=== PATIENT | female | born 1950 | race Caucasian/White ===

== ENCOUNTER 2020-08-24 06:26 | Emergency (ER) | payer OTHER, SELFPAY ==
[2020-08-24 06:27] VITALS: BP 196/86; PULSE 89; RESP 16; TEMP 36.8; O2SAT 99; BMI 36.7
--- NOTE | 2020-08-24 06:35 | EKG12_ITS ---
Test Reason : Blood Pressure : / mmHG Vent. Rate : 057 BPM Atrial Rate : 057 BPM P-R Int : 220 ms QRS Dur : 084 ms QT Int : 424 ms P-R-T Axes : 058 -18 -05 degrees QTc Int : 412 ms Sinus bradycardia with 1st degree A-V block Nonspecific ST abnormality Abnormal ECG Confirmed by EDENILSON NGUYEN, HERBERT ([id number]), supervising editor news reel PUNEET SCHWAB ([id number]) on 08/26/2020 8:10:33 AM Referred By: MERCEDES Confirmed By:TREY PYLE MD
--- NOTE | 2020-08-24 06:36 | ED.VIS.GEN ---
History of Present Illness Chief Complaint: Abd Pain Informant: Patient Narrative: Patient stated she has had diffuse abdominal pain for last 6 weeks. It is continuous but waxes and wanes deep aching sometimes sharp. She has had a partial work-up for this. She saw her family doctor who did some urine testing and told her she had some hematuria. She was placed on antibiotic for that and it seemed to cleared up but she followed up and had a repeat urine test that showed some microscopic hematuria. She saw urologist and was diagnosed with renal stones with a IN her kidneys and not causing any symptoms per urology. Patient also followed up with a general surgeon Dr. Gayle her abdomen was done which showed stones but they do not feel that the cause of her generalized pain. They are planning on doing a endoscopy next. Patient stated she has no nausea or vomiting. She is having bowel movements but she feels a little more constipated. History of a hysterectomy and appendectomy in the remote past. Denies any chronic medical problems. She denies a history of hypertension. She does not take any chronic medications. No urinary symptoms currently. Past Medical History - Allergies and Home Meds Allergies/Adverse Reactions: Allergies No Known Allergies Allergy (Verified 08/24/20 06:37) Primary Care Physician: Mekhi Betancourt,Out of [Primary Care Provider] - Prior records reviewed: Yes Past Medical History: None Surgical History: appendectomy, hysterectomy Lives: With Family Smoking Status: Never smoker Alcohol: None Drugs: None Review of Systems General: Denies: Chills, Fever, Sweats Eyes: Denies: Visual changes - bilaterally, Diplopia ENT: Denies: Rhinorrhea, Sore throat Cardiovascular: Denies: Chest pain, Palpitations Respiratory: Denies: Dyspnea, Cough, Dyspnea on exertion Gastrointestinal: Reports: Abdominal pain. Denies: Nausea, Vomiting, Diarrhea, Melena, Hematochezia Genitourinary: Denies: Dysuria, Hematuria, Frequency Musculoskeletal: Denies: Back pain, Extremity Pain Skin: Denies: Rash, Wounds Neurological: Denies: Headache, Weakness, Numbness Physical Exam Vital Signs/Narrative: Vital Signs Temp Pulse Resp BP Pulse Ox 08/24/20 06:27 98.2 F 89 16 196/86 H 99 General: Well nourished, Well developed, No Acute Distress Head: Normocephalic, Atraumatic Eyes: Perrl, EOMI ENT: Moist mucous membranes, No rhinorrhea Neck: Supple, Nontender Cardiovascular: Regular rate, Regular rhythm, No murmurs Respiratory: No distress, CTA bilaterally, Chest nontender, Chest tenderness Abdomen: Soft, Nondistended, Normal bowel sounds, Tender - Mild diffuse tenderness throughout. Negative for: Guarding, Rebound tenderness, Hyperactive bowel sounds, Hepatomegaly Back: Nontender, Normal Inspection Extremities: Nontender, No edema Skin: Normal color, No rash Neurological: Alert, Oriented x3, Cranial nerves II-XII grossly intact, Normal Strength, Normal Sensation Psychological: Normal affect, Normal Mood Diagnostic/Tx/Re-eval - Medical Decision Making Patient declined pain or nausea medicines. Lab work and CT abdomen pelvis obtained. Will be signed out to the morning oncoming physician Dr Rivera for follow up ED Disposition - Plan for ED Patient: Diagnosis: Abdominal pain Referrals: [facility] Doctor,Out of [Primary Care Provider] -
--- NOTE | 2020-08-24 07:01 | CT_ITS ---
STUDY: CT ABDOMEN AND PELVIS WITH CONTRAST REASON FOR EXAM: Female, 69 years old. Upper abd pain and hematuria -- IV PO Contrast RADIATION DOSAGE (If Supplied By Facility): CTDIvol = ( 16.12 ) mGy, DLP = ( 1062.53 ) mGycm TECHNIQUE: Transaxial images were obtained from the dome of the diaphragm to the symphysis pubis with oral contrast. Oral and amp; IV Gastrografin and amp; 100mL Isovue-300 was administered. Sagittal and coronal images were reconstructed. Individualized dose optimization techniques were used for this CT. COMPARISON: None. FINDINGS: The visualized lung bases are unremarkable. The visualized portions of the heart are within normal limits. Normal liver. There are multiple gallstones. Normal spleen. Normal pancreas. Normal bilateral adrenal glands. There is a 1.1 cm calculus in the mid lower pole calyces of the right kidney. Punctate calculus in the upper pole calyx of the right kidney. Mild degree of right hydronephrosis and right hydroureter down to the ureterovesical junction. No obstructive calculus is seen at this time. This may be secondary to a recently passed right ureteral calculus.. Left parapelvic renal cysts. Normal visualized stomach. Normal small intestine. There are multiple colonic diverticula consistent with diverticulosis. Moderate amount of fecal material is seen in the colon. The patient is status post appendectomy. There is scattered atherosclerotic calcification of the abdominal aorta, without a demonstrated aneurysm. Normal inferior vena cava. Normal retroperitoneum. Normal urinary bladder. There is absence of the uterus consistent with a prior hysterectomy. Normal abdominal wall. There are degenerative changes of the visualized lumbar spine. Minimal anterior listhesis of L3 on L4 most likely secondary to facet joint osteoarthritis. CT/Abdomen/Pelvis WITH Contrast IMPRESSION: 1.1; this in the mid lower pole calyxes of the right kidney. Mild degree of right hydronephrosis and right hydroureter without an obstructive calculus at this time. Left parapelvic renal cysts. Moderate amount of fecal material is seen in the colon. Electronically Signed: Nadir Garza MD at 9:18 EDT , Service support ,
[2020-08-24 07:02] LABS: Absolute Lymphocyte Count 0.98 X10^3/uL (0.83-4.51); Absolute Neutrophil Count 2.5 X10^3/uL (2.0-7.7); Basophil# 0.05 X10^3/uL; Basophil% 1.2 % (0-1); Eosinophil# 0.29 X10^3/uL; Eosinophils% 7.1 % (0-5); Hematocrit 40.1 % (37-47); Hemoglobin 13.3 g/dL (12.0-15.0); Lymphocyte # 0.98 X10^3/ul (0.83-4.51); Mean Corp Hgb Conc 33.2 g/dL (32-36); Mean Corpuscular Hgb 31.3 pg (27.0-32.0); Mean Corpuscular Volume 94.4 fL (81-99); Mean Platelet Vol. 10.3 fl (6.2-12.0); Monocyte# 0.29 X10^3/uL; Monocyte% 7.1 % (0-10); NRBC Flagged by Analyzer 0 % (0-5); Neutrophil # 2.47 X10^3/uL (2.7-7.7); Neutrophil % 60.4 % (47-70); Platelet Count 239 K/mm3 (150-450); RBC Distribution Width CV 12.9 % (11.6-14.6); Red Blood Count 4.25 M/mm3 (4.2-5.4); White Blood Count 4.1 K/mm3 (4.4-11.0)
[2020-08-24 07:25] LABS: ALB/GLOB Ratio 1.1 RATIO (0.9-2.4); AST(SGOT) 15 U/L (15-37); Alanine Aminotransfer ALT/SGPT 19 U/L (13-56); Albumin, Serum 3.9 g/dL (3.2-5.0); Alkaline Phosphatase 79 U/L (45-117); Anion Gap 3 (5-15); BUN 23 mg/dL (7-18); BUN/Creat Ratio 25.4 RATIO (10-20); Calcium,Total 8.8 mg/dL (8.5-10.1); Chloride 108 mmol/L (98-107); Creatinine, Serum 0.91 mg/dL (0.55-1.02); EST Glomerular Filtration Rate 65 mL/min (>60); Est Glom Filt Rate - Afr Amer 79 mL/min (>60); Estimated Creatinine Clearance 44.85 ml/min; Globulin 3.4 g/dL (2.2-4.2); Glucose 100 mg/dL (74-106); Lipase 29 U/L (73-393); Protein, Total 7.3 g/dL (6.4-8.2); Sodium Level 141 mmol/L (136-145)
[2020-08-24 07:58] VITALS: BP 184/63; PULSE 72; RESP 16; TEMP 36.4; O2SAT 99
[2020-08-24] MEDS: 0.9% Normal Saline 1,000 ML 1000 ML IV (08:08)
[2020-08-24 08:13] LABS: Bacteria 0 SEEN /hpf (None Seen); Mucous, Urine 0 SEEN /hpf (<or=2+); White Blood Cells 0 SEEN /hpf (0-5)
[2020-08-24 08:20] LABS: Color, Urine Straw (Yellow); Glucose, Dipstick Normal (Normal); Ketone-Dipstick Negative (Negative); Leukocyte Esterase-Dipstick Negative /ul (Negative); Nitrite-Dipstick Negative (Negative); Occult Blood-Urine 10 /ul (Negative); Protein-Dipstick Negative (Negative); Urine Bilirubin Dipstick Negative (Negative); Urine Clarity Clear (Clear); Urine Urobilinogen Normal (Normal)
[2020-08-24 08:23] VITALS: BP 149/74; PULSE 84; RESP 16; TEMP 36.4; O2SAT 97
[2020-08-24 08:25] LABS: Red Blood Cells-Urine 0-5 SEEN /hpf (0-5); Squamous Epithelial Cells - UA 0-5 SEEN /hpf (5-10)
--- NOTE | 2020-08-24 09:44 | ED.DEP ---
ED Disposition - Plan for ED Patient: Disposition: Home or Assisted Living Diagnosis: Abdominal pain Instructions: ED Constipation (Adult), Understanding Kidney Stones Prescriptions: Magnesium Citrate [Citrate Of Magnesia] 150 ml PO Q4H PRN PRN #300 ml PRN Reason: Constipation Transmission Status: Pending to [facility] Referrals: Kedar Gayle MD [STAFF PHYSICIAN] - Keep [facility] appointment
[2020-08-24 09:59] VITALS: BP 160/79; PULSE 68; RESP 18; O2SAT 95
== END 2020-08-24 10:00 | disposition home or self-care (01) ==
PROVIDERS: Emergency Medicine; Emergency Provider Emergency Medicine; PCP Nurse Practitioner Family
DX: N13.30 Unspecified hydronephrosis (principal); N13.4 Hydroureter; K59.00 Constipation, unspecified; N28.1 Cyst of kidney, acquired; I44.0 Atrioventricular block, first degree; Z87.442 Personal history of urinary calculi
CPT/HCPCS: 74177; 80053; 81001; 83690; 84484; 85025; 93005; 96360; 99283; J7030; Q9967; A4216

== ENCOUNTER 2020-10-11 18:27 | Emergency (ER) | payer OTHER, SELFPAY ==
[2020-10-11 18:28] VITALS: BP 173/100; PULSE 75; RESP 16; TEMP 36.6; O2SAT 96; BMI 36.6
[2020-10-11 19:50] LABS: Absolute Lymphocyte Count 1.19 X10^3/uL (0.83-4.51); Absolute Neutrophil Count 3.4 X10^3/uL (2.0-7.7); Basophil# 0.03 X10^3/uL; Basophil% 0.6 % (0-1); Eosinophils% 5.6 % (0-5); Hematocrit 38.3 % (37-47); Hemoglobin 12.7 g/dL (12.0-15.0); Lymphocyte # 1.19 X10^3/ul (0.83-4.51); Lymphocyte % 22.4 % (19-41); Mean Corp Hgb Conc 33.2 g/dL (32-36); Mean Corpuscular Hgb 31.1 pg (27.0-32.0); Mean Corpuscular Volume 93.9 fL (81-99); Mean Platelet Vol. 10.4 fl (6.2-12.0); Monocyte# 0.38 X10^3/uL; Monocyte% 7.2 % (0-10); NRBC Flagged by Analyzer 0 % (0-5); Platelet Count 250 K/mm3 (150-450); RBC Distribution Width CV 13.3 % (11.6-14.6); RBC Distribution Width SD 45.6 fl (35.1-43.9); Red Blood Count 4.08 M/mm3 (4.2-5.4); White Blood Count 5.3 K/mm3 (4.4-11.0)
--- NOTE | 2020-10-11 20:02 | EDS_ITS ---
HPI History of Present Illness Chief Complaint: Abd Pain Informant: patient Narrative Narrative: Patient is a 70-year-old female who presents to the emergency department for abdominal pain. She has been seen before in the past for this. She states that she has been having ongoing issues over the past couple of months for this. She had a perforated ulcer back in August. She was told that she had many gallstones. They wanted the stomach ulcer to heal before they did surgery on the gallbladder. She also had kidney stones. She has been having gross hematuria but this has improved. She called her surgeon today and he referred to the emergency department because they were unable to operate on her until next week. She denies any fevers or chills. No nausea or vomiting. No change in bowel movements. No urinary symptoms now. She currently rates the p ain as a 6 out of 10. Does fluctuate in severity and gets very severe at times. She has been taking Protonix at home. This has not been giving her much relief. She also has noticed a couple spots breakout on her arms. The right forearm has been draining a clear fluid. She is never had this before. This has been present over the past 2 days. [facility] Medical History (Updated 10/11/20 @ 21:[address] Donavon Pretty DO) Gallbladder attack Kidney stones Stomach ulcer Home Medications magnesium citrate 150 ml PO Q4H PRN PRN #300 ml 08/24/20 [Rx Last Taken Unknown] cephalexin 500 mg PO Q12H #14 cap 10/11/20 [Rx Last Taken Unknown] hydrocodone-acetaminophen 1 tab PO Q6H PRN PRN 4 Days #15 tablet 10/11/20 [Rx Last Taken Unknown] polyethylene glycol 3350 [Miralax] 17 g PO DAILY 7 Days #119 g 10/11/20 [Rx Last Taken Unknown] Allergy/AdvReac Type Severity Reaction Status Date / Time No Known Allergies Allergy Verified 10/11/20 18:30 Social History Smoking Status: Never smoker ROS ROS ED Constitutional Constitutional ED: Denies chills or fever(s) Eyes Eyes: Denies change in vision ENT ENT ED: Denies epistaxis or rhinorrhea Cardiovascular Cardiovascular: Denies chest pain or palpitations Respiratory/Chest Respiratory/Chest: Denies cough, dyspnea or dyspnea on exertion Gastrointestinal Gastrointestinal: Reports abdominal pain; Denies diarrhea, nausea or vomiting Genitourinary Genitourinary ED: Denies dysuria, hematuria or urinary frequency Musculoskeletal Musculoskeletal: Denies back pain or neck pain Integumentary Reports rash Neurologic Neurologic: Denies dizziness, headache(s) or weakness EXAM Physical Exam Const Vital Signs: 10/11/20 18:28 10/11/20 20:33 Temperature 97.8 F Temperature Source Temporal Pulse Rate 75 64 Respiratory Rate 16 16 Blood Pressure 173/100 H 170/86 H Blood Pressure Mean 124 114 Pulse Ox 96 97 Oxygen Delivery Method Room Air Room Air Positive well nourished and well developed General Appearance ED: well developed and NAD HEENT Reports normocephalic, head/scalp atraumatic and moist mucous membranes Eyes PERRL and EOMs intact bilaterally Neck supple Chest Wall inspection of chest normal Resp normal respiratory effort and clear to auscultation bilaterally Auscultation: Negative for rales, rhonchi or wheezes Cardio regular rate, regular rhythm and no murmurs GI normal to inspection, nondistended, normoactive bowel sounds GI Narrative: Mild diffuse tenderness. More severe tenderness in the right upper quadrant. Palpation: Negative for guarding or rebound tenderness present Back/Spine no CVA tenderness Extremity normal to inspection General Extremety ED: Negative for edema or tenderness General Extremity: Negative for edema Neuro oriented x3, CN's II-XII intact bilaterally and no sensory deficits noted Sensorium / Orientation: alert Motor Exam: strength 5/5 throughout Psych mental status grossly normal Skin Skin Narrative: Superficial ulcerations of the upper extremities. There are 5 lesions in total. One has some serosanguineous draining on the right forearm. No surrounding cellulitis or abscess. MDM MDM MDM Narrative Medical decision making narrative: Patient presents to the ED for abdominal pain. She is supposed to have a cholecystectomy performed outpatient but her pain has been getting worse. Will check basic lab work and repeat CT scan of the abdomen/pelvis. Patient's lab work-up did not reveal a high white blood cell count. No significant electrolyte disturbance. Mild elevation of AST but no other abnormality on liver enzymes. Lipase is within normal limits. Urine shows signs of infection and will treat this with Keflex. Patient's pain is doing much better. CT scan was similar to previous. There is some hydronephrosis without evidence of obstruction. There are not many gallstones in the gallbladder. Since she has not been treated with pain medication we will try outpatient treatment with [facility]. She is to follow-up with her general surgeon. She is put on MiraLAX for potential constipation. Patient advised to put triple antibiotic ointment on the open wounds and to not pick at them. No evidence of infection at this time. Return precautions are reviewed. She understands and is agreeable to plan. Discharged home in stable condition. All questions answered. Lab Data Labs: Laboratory Results - last 24 hr 10/11/20 10/11/20 10/11/20 19:45 19:45 20:13 WBC 5.3 RBC 4.08 L Hgb 12.7 Hct 38.3 MCV 93.9 MCH 31.1 MCHC 33.2 RDW Std Deviation 45.6 H RDW Coeff of Komal 13.3 Plt Count 250 MPV 10.4 Immature Gran % (Auto) 0.200 Neut % (Auto) 64.0 Lymph % (Auto) 22.4 Fountain % (Auto) 7.2 Eos % (Auto) 5.6 H Baso % (Auto) 0.6 Absolute Neuts (auto) 3.4 Absolute Lymphs (auto) 1.19 Nucleated RBC % 0 Sodium 143 Potassium 4.6 Chloride 112 H Carbon Dioxide 25.0 Anion Gap 6 BUN 14 Creatinine 0.82 Estim Creat Clear Calc 49.05 Est GFR (MDRD) Af Amer 88 Est GFR (MDRD) Non-Af 72 BUN/Creatinine Ratio 17.0 Glucose 122 H Calcium 8.8 Total Bilirubin 0.90 AST 46 H ALT 22 Alkaline Phosphatase 83 Total Protein 7.1 Albumin 3.6 Globulin 3.5 Albumin/Globulin Ratio 1.0 Lipase < 10 L Urine Color Yellow Urine Clarity Sl. Cloudy Urine pH 6.0 Ur Specific [place] 1.020 Urine Protein 15 H Urine Glucose (UA) Normal Urine Ketones Negative Urine Occult Blood 25 H Urine Nitrite Positive H Urine Bilirubin Negative Urine Urobilinogen Normal Ur Leukocyte Esterase 500 H Urine RBC 0-5 SEEN Urine WBC >100 SEEN Ur Squamous Epith Cells 0-5 SEEN Urine Bacteria 2+ Urine Mucus 0 SEEN Radiography Diagnostic Testing: Radiology Impression Abdomen/Pelvis CT 10/11/20 20:18 IMPRESSION: Large stone burden within the gallbladder. Nonobstructing 1.3 cm right renal pelvic stone. Similar right hydronephrosis/proximal hydroureter. Diverticulosis. Electronically Signed: Wilber Tipton MD at 21:16 EDT Tel , Service support , Discharge Plan Triage Chief Complaint: Abd Pain ED Provider: Donavon Pretty Dx/Rx/DC Orders Clinical Impression: Abdominal pain, Cholelithiasis, UTI (urinary tract infection), uncomplicated Instructions: ED Gallstones with Biliary Colic, ED Bladder Infection, Female (Adult) Prescriptions: New hydrocodone-acetaminophen 5-325 mg tablet 1 tab PO Q6H PRN PRN (Reason: Pain) 4 Days Qty: 15 RF: 0 cephalexin 500 mg capsule 500 mg PO Q12H Qty: 14 RF: 0 polyethylene glycol 3350 [Miralax] 17 gram/dose powder 17 g PO DAILY 7 Days Qty: 119 RF: 0 No Action magnesium citrate 300 ML solution 150 ml PO Q4H PRN PRN (Reason: Constipation) Qty: 300 RF: 0 Primary Care Provider: Emily Avelar NP Referrals: Kedar Gayle MD [STAFF PHYSICIAN] - 1-2 Days if not improving Emily Avelar NP, [employer] [Primary Care Provider] - Disposition Disposition: Home, self care Discharge Date/Time: 10/11/20 21:51
[2020-10-11 20:11] LABS: AST(SGOT) 46 U/L (15-37); Alanine Aminotransfer ALT/SGPT 22 U/L (13-56); Albumin, Serum 3.6 g/dL (3.2-5.0); Alkaline Phosphatase 83 U/L (45-117); Anion Gap 6 (5-15); BUN 14 mg/dL (7-18); Calcium,Total 8.8 mg/dL (8.5-10.1); Chloride 112 mmol/L (98-107); Creatinine, Serum 0.82 mg/dL (0.55-1.02); EST Glomerular Filtration Rate 72 mL/min (>60); Est Glom Filt Rate - Afr Amer 88 mL/min (>60); Estimated Creatinine Clearance 49.05 ml/min; Globulin 3.5 g/dL (2.2-4.2); Glucose 122 mg/dL (74-106); Lipase < 10 U/L (73-393); Potassium 4.6 mmol/L (3.5-5.1); Protein, Total 7.1 g/dL (6.4-8.2); Sodium Level 143 mmol/L (136-145)
[2020-10-11] MEDS: HYDROmorphone 1 MG/ML Syringe IV (20:13)
--- NOTE | 2020-10-11 20:18 | CT_ITS ---
STUDY: CT ABDOMEN AND PELVIS WITH CONTRAST REASON FOR EXAM: Female, 70 years old. RUQ hernia pain RADIATION DOSAGE (If Supplied By Facility): CTDIvol = ( 18.67 ) mGy, DLP = ( 1077.92 ) mGycm TECHNIQUE: Transaxial images were obtained from the dome of the diaphragm to the symphysis pubis without oral contrast. IV 50mL Isovue-370 was administered. Sagittal and coronal images were reconstructed. Individualized dose optimization techniques were used for this CT. COMPARISON: None. FINDINGS: The visualized lung bases are unremarkable. The visualized portions of the heart are within normal limits. Normal liver. Large stone burden within the gallbladder. Normal spleen. Normal pancreas. Normal bilateral adrenal glands. Multiple bilateral parapelvic cysts. Dilatation of the right proximal ureter. Large right renal pelvis stone measures up to 1.3 cm. Normal visualized stomach. Normal small intestine. There are multiple colonic diverticula consistent with diverticulosis. There are surgical clips in the region of the appendix consistent with a prior appendectomy. Normal abdominal aorta. Normal inferior vena cava. Normal retroperitoneum. Normal urinary bladder. Hysterectomy. Normal abdominal wall. Normal osseous structures. CT/Abdomen/Pelvis W IV Cont ONLY IMPRESSION: Large stone burden within the gallbladder. Nonobstructing 1.3 cm right renal pelvic stone. Similar right hydronephrosis/proximal hydroureter. Diverticulosis. Electronically Signed: Wilber Tipton MD at 21:16 EDT Tel , Service support ,
[2020-10-11 20:22] LABS: Mucous, Urine 0 SEEN /hpf (<or=2+)
[2020-10-11 20:24] LABS: Color, Urine Yellow (Yellow); Glucose, Dipstick Normal (Normal); Ketone-Dipstick Negative (Negative); Leukocyte Esterase-Dipstick 500 /ul (Negative); Nitrite-Dipstick Positive (Negative); Occult Blood-Urine 25 /ul (Negative); Protein-Dipstick 15 mg/dl (Negative); Urine Bilirubin Dipstick Negative (Negative); Urine Clarity Sl. Cloudy (Clear); Urine Urobilinogen Normal (Normal)
[2020-10-11 20:29] LABS: Bacteria 2+ /hpf (None Seen); Red Blood Cells-Urine 0-5 SEEN /hpf (0-5); Squamous Epithelial Cells - UA 0-5 SEEN /hpf (5-10); White Blood Cells >100 SEEN /hpf (0-5)
[2020-10-11 20:33] VITALS: BP 170/86; PULSE 64; RESP 16; O2SAT 97
[2020-10-11] MEDS: HYDROcodone Bitartrate/Apap 5/325 Tablet PO (21:44)
[2020-10-11] MEDS: Cephalexin 250 MG Capsule 500 MG PO (21:44)
== END 2020-10-11 21:51 | disposition home or self-care (01) ==
PROVIDERS: Emergency Provider Emergency Medicine; PCP Nurse Practitioner Family
DX: K80.20 Calculus of gallbladder without cholecystitis without obstruction (principal); N39.0 Urinary tract infection, site not specified; N13.2 Hydronephrosis with renal and ureteral calculous obstruction; L98.499 Non-pressure chronic ulcer of skin of other sites with unspecified severity; Z87.19 Personal history of other diseases of the digestive system; Z87.442 Personal history of urinary calculi
CPT/HCPCS: 74177; 80053; 81001; 83690; 85025; 96374; 99282; Q9967; A4216